=== PATIENT | male | born 1990 | race Two or more races ===

== ENCOUNTER 2019-11-05 12:50 | Emergency (ER) | payer SELFPAY ==
[~2019-11-05] VITALS: Ht 170.2 cm; Wt 97.5 kg
[2019-11-05 20:22] VITALS: BP 121/76
== END 2019-11-05 20:48 | disposition home or self-care (01) ==
LOC: ER 12:50
DX: J06.9 Acute upper respiratory infection, unspecified (principal); R51 Headache
CPT/HCPCS: 71046